=== PATIENT | female | born 1955 | race Caucasian/White ===

== ENCOUNTER → 2022-04-19 16:05 | Outpatient (CLI) | payer MEDICARE, OTHER, SELFPAY ==
--- NOTE | 2022-04-19 16:08 | DI.MRI.S_ITS ---
PROCEDURE: MR LUMBAR SPINE WO CON INDICATIONS: Spinal stenosis, lumbar region TECHNIQUE: Noncontrast sagittal T1 spin echo and T2 fast echo, sagittal STIR, and T2 fast spin echo through the lumbar spine. In cases with scoliosis, additional coronal T2 fast spin echo may be performed. COMPARISON: None. FINDINGS: Image quality: Excellent. Alignment and Curvature: There is [id number] levoscoliosis of lumbar spine centered at L2 and L3 levels. No significant spondylolisthesis. Bone Marrow: Marrow is of normal overall signal. No acute vertebral body compression fractures. Spinal Cord: Conus medullaris terminates at the L1 level. Visualized cord demonstrates normal signal and size. Paraspinous Soft Tissues: No paravertebral masses. T12-L1: There is loss of disc height and disc signal. Central to left disc bulge at with mild central canal stenosis is seen. No significant neural foraminal narrowing. L1-L2: There is loss of disc height and disc signal. Left lateral disc bulge and bilateral facet arthrosis is seen with mild central canal stenosis and left-sided neural foraminal narrowing. L2-L3: There is near complete loss of disc height and disc signal. Broad-based disc bulge and bilateral facet arthrosis is seen with moderate central canal stenosis and right worse than left bilateral neural foraminal narrowing. L3-L4: There is loss of disc height and disc signal. Broad-based disc bulge and bilateral facet arthrosis is seen causing moderate to severe central canal stenosis and bilateral neural foraminal narrowing. Bulging disc likely contacting bilateral L3 and L4 nerve roots. L4-L5: There is loss of disc height disc signal. Broad-based disc bulge and bilateral facet arthrosis with hypertrophy of ligamentum flavum is seen causing moderate to severe central canal stenosis and bilateral neural foraminal narrowing. L5-S1: Loss of disc height and disc signal is seen. Diffuse disc bulge and bilateral facet arthrosis is noted with [id number] central canal stenosis and mild bilateral neural foraminal narrowing. IMPRESSION: 1. Mild scoliosis as above. No acute compression fracture or spondylolisthesis. 2. Degenerative disc disease throughout lumbar spine most notably at L3-4 and L4-5 levels as above. Dictated by: Rick Estrada M.D. on 04/20/2022 at 9:55 Approved by: Rick Estrada M.D. on 04/20/2022 at 10:34
== END ==
PROVIDERS: Family Provider Nurse Practitioner; PCP Family Medicine; Referring Provider Physical Medicine & Rehabilitation; Visit Provider Physical Medicine & Rehabilitation
DX: M48.062 Spinal stenosis, lumbar region with neurogenic claudication (principal); M51.36 Other intervertebral disc degeneration, lumbar region; M41.9 Scoliosis, unspecified
CPT/HCPCS: 72148